=== PATIENT | female | born 1955 | race Caucasian/White ===

== ENCOUNTER 2023-08-11 06:46 | Inpatient (IN) | payer OTHER, MEDICARE ==
[~2023-08-11] VITALS: Ht 170.2 cm; Wt 81.6 kg
[2023-08-11] MEDS ORDERED: SCOPOLAMINE HYDROBROMIDE 1 MG PATCH .72 H (TRANSDERM-SCOP) TD ONE ×2 (07:00→07:06)
[2023-08-11] MEDS ORDERED: ACETAMINOPHEN 500 MG TABLET PO ONE (07:00)
[2023-08-11] MEDS ORDERED: oxyCODONE HCL 10 MG TAB.ER.12H PO ONE (07:00)
[2023-08-11] MEDS ORDERED: CELECOXIB 100 MG CAPSULE PO ONE (07:00)
[2023-08-11] MEDS ORDERED: CELECOXIB 100 MG CAPSULE ONE (07:05)
[2023-08-11] MEDS ORDERED: ACETAMINOPHEN 500 MG TABLET ONE (07:06)
[2023-08-11] MEDS ORDERED: GABAPENTIN 300 MG CAPSULE ONE (07:09)
[2023-08-11] MEDS ORDERED: GABAPENTIN 300 MG CAPSULE PO ONE (07:15)
[2023-08-11 07:24] LABS: HEMATOCRIT 43.7 % (36-48); HEMOGLOBIN 14.2 g/dL (12.0-16.0); MEAN CORPUSCULAR HEMOGLOBIN 30 pg (27-31); MEAN CORPUSCULAR HGB CONC 33 % (32-36); MEAN CORPUSCULAR VOLUME 92 fL (79.0-98.0); PLATELET COUNT (AUTO) 288 K/uL (130-430); RED BLOOD CELL COUNT(AUTO) 4.75 MIL/uL (4.2-6.2); RED CELL DISTRIBUTION WIDTH 13.9 % (9.0-15.0)
[2023-08-11] MEDS ORDERED: CEFAZOLIN SOD 2 GM in D5W 50 ML IV ONE (07:30)
[2023-08-11 07:31] LABS: WHITE BLOOD COUNT (AUTO) 32.5 K/uL (4.8-10.8)
[2023-08-11 07:41] LABS: CALCIUM 8.8 mg/dL (8.4-11.0); CREATININE 0.7 mg/dL (0.55-1.30); POTASSIUM 4.1 mmol/L (3.5-5.1)
[2023-08-11 08:09] LABS: ATYPICAL LYMPHOCYTES % 4 % (0-0); BASOPHILS % (MANUAL) 0 % (0-2); EOSINOPHILS % (MANUAL) 0 % (0-7); LYMPHOCYTES % (MANUAL) 82 % (20-46); MONOCYTES % (MANUAL) 1 % (0-11); PLATELET ESTIMATE ADEQUATE (ADEQUATE); SMUDGE CELLS FEW
[2023-08-11] MEDS ORDERED: VANCOMYCIN HCL 1000 MG/VIAL IV ONE (09:35)
[2023-08-11] MEDS ORDERED: LR 1,000 ML IV.SOLN IV ONE (09:35)
[2023-08-11] MEDS ORDERED: PROPOFOL 200MG/ 20ML VIAL (DIPRIVAN) IV ONE (09:35)
[2023-08-11] MEDS ORDERED: BUPIVACAINE /DEX PF 0.75% SPINAL 2 ML AMP INJ ONE (09:35)
[2023-08-11] MEDS ORDERED: MIDAZOLAM HCL 2 MG/2 ML VIAL (VERSED) ONE (09:35)
[2023-08-11] MEDS ORDERED: PHENYLEPHRINE HCL 10 MG/ML VIAL (NEOSYNEPHRINE) ONE (09:35)
[2023-08-11] MEDS ORDERED: ePHEDrine sulfate 50 MG/ML VIAL ONE (09:35)
[2023-08-11] MEDS ORDERED: DEXAMETHASONE SOD PHOSPHATE 4 MG/ML VIAL ONE (09:35)
[2023-08-11] MEDS ORDERED: SEVOFLURANE 15 MIN GAS INH ONE (09:35)
[2023-08-11] MEDS ORDERED: fentaNYL CITRATE/PF 100 MCG/2 ML AMP ONE (09:35)
[2023-08-11] MEDS ORDERED: GLYCOPYRROLATE 0.2 MG/ML VIAL ONE (09:35)
[2023-08-11] MEDS ORDERED: TRANEXAMIC ACID 1,000 MG/10 ML VIAL ONE (09:35)
[2023-08-11] MEDS ORDERED: METOCLOPRAMIDE HCL 10 MG/2 ML VIAL ONE (09:35)
[2023-08-11] MEDS ORDERED: KETOROLAC TROMETHAMINE 30 MG VIAL ONE (09:35)
[2023-08-11] MEDS ORDERED: ONDANSETRON HCL 4 MG/2 ML VIAL ONE (09:35)
[2023-08-11] MEDS ORDERED: LORATADINE 10 MG TABLET PO PRN (11:00)
[2023-08-11] MEDS ORDERED: oxyCODONE HCL 5 MG TABLET PO PRN ×2 (11:00)
[2023-08-11] MEDS ORDERED: HYDROmorphone 1 MG/ML INJ. CARTRIDGE IVP PRN ×4 (11:00→11:30)
[2023-08-11] MEDS ORDERED: LR 1,000 ML IV SCH (11:30)
[2023-08-11] MEDS ORDERED: ONDANSETRON HCL 4 MG/2 ML VIAL IVP PRN ×2 (11:30→11:45)
[2023-08-11] MEDS ORDERED: KETOROLAC TROMETHAMINE 30 MG VIAL IVP PRN (11:30)
[2023-08-11] MEDS ORDERED: NALOXONE HCL 0.4 MG/ML AMP (NARCAN) IVP PRN ×5 (11:30→12:30)
[2023-08-11] MEDS ORDERED: MEPERIDINE HCL/PF 25 MG/ML DISP.SYRIN IVP PRN (11:30)
[2023-08-11] MEDS ORDERED: BISACODYL 10 MG/SUPPOSITORY RC PRN (12:30)
[2023-08-11] MEDS ORDERED: DIPHENHYDRAMINE HCL 25 MG CAPSULE PO PRN (12:30)
[2023-08-11] MEDS ORDERED: METOCLOPRAMIDE HCL 10 MG/2 ML VIAL IVP PRN (12:30)
[2023-08-11] MEDS ORDERED: LACTULOSE 20 GM/30 ML UDC PO PRN (12:30)
[2023-08-11 12:59] LABS: BASOPHILS # (AUTO) 0.1 K/uL (0.0-0.2); BASOPHILS % (AUTO) 0.3 % (0.0-2.0); EOSINOPHILS # (AUTO) 0.1 K/uL (0.0-0.4); EOSINOPHILS % (AUTO) 0.3 % (0.0-4.0); HEMATOCRIT 38.4 % (36-48); HEMOGLOBIN 12.4 g/dL (12.0-16.0); LYMPHOCYTES % (AUTO) 70.5 % (20.5-51.5); MEAN CORPUSCULAR HEMOGLOBIN 30 pg (27-31); MEAN CORPUSCULAR HGB CONC 32 % (32-36); MEAN CORPUSCULAR VOLUME 92 fL (79.0-98.0); MONOCYTES # (AUTO) 0.4 K/uL (0.0-1.0); MONOCYTES % (AUTO) 1.4 % (1.7-9.3); NEUTROPHILS # (AUTO) 8.6 K/uL (1.8-7.7); PLATELET COUNT (AUTO) 255 K/uL (130-430); RED BLOOD CELL COUNT(AUTO) 4.16 MIL/uL (4.2-6.2); RED CELL DISTRIBUTION WIDTH 13.6 % (9.0-15.0)
[2023-08-11 13:09] LABS: WHITE BLOOD COUNT (AUTO) 31.3 K/uL (4.8-10.8)
[2023-08-11 13:12] LABS: NEUTROPHILS % (AUTO) 27.5 % (40.0-70.0)
[2023-08-11] MEDS: ceFAZolin SODIUM 2 GM in D5W 50 ML IV SCH ×3 (13:25→21:58)
[2023-08-11 16:00] VITALS: BP_SYST 118; PULSE 86; RESP 16; TEMP 97.2; O2SAT 97
[2023-08-11 17:45] VITALS: O2SAT 95
[2023-08-11 19:00] VITALS: O2SAT 97
[2023-08-11] MEDS: ACETAMINOPHEN 500 MG TABLET PO SCH ×2 (20:31→21:58)
[2023-08-11] MEDS: KETOROLAC TROMETHAMINE 10 MG TABLET (TORADOL) PO SCH ×2 (20:31→22:02)
[2023-08-11 20:42] VITALS: BP_SYST 113; PULSE 78; RESP 16; TEMP 97; O2SAT 93
[2023-08-11] MEDS: SENNOSIDES/DOCUSATE SODIUM 1 TAB TABLET(SENOKOT-S) PO SCH (21:57)
[2023-08-12 00:42] VITALS: BP_SYST 108; PULSE 70; RESP 18; TEMP 98; O2SAT 95
[2023-08-12] MEDS: traMADol HCL HCL 50 MG TABLET (ULTRAM) PO PRN ×2 (03:18→20:43)
[2023-08-12] MEDS: ceFAZolin SODIUM 2 GM in D5W 50 ML IV SCH (05:47)
[2023-08-12] MEDS: ACETAMINOPHEN 500 MG TABLET PO SCH ×3 (06:08→22:22)
[2023-08-12] MEDS: KETOROLAC TROMETHAMINE 10 MG TABLET (TORADOL) PO SCH (06:09)
[2023-08-12 07:34] LABS: CALCIUM 8.1 mg/dL (8.4-11.0); CREATININE 0.88 mg/dL (0.55-1.30); POTASSIUM 4.4 mmol/L (3.5-5.1)
[2023-08-12 08:36] VITALS: BP_SYST 124; PULSE 83; RESP 20; TEMP 98.2; O2SAT 99
[2023-08-12] MEDS: SENNOSIDES/DOCUSATE SODIUM 1 TAB TABLET(SENOKOT-S) PO SCH ×2 (09:17→20:40)
[2023-08-12] MEDS: ASPIRIN 81 MG TAB.CHEW PO SCH ×2 (09:17→20:40)
[2023-08-12] MEDS: DECADRON 4 MG TABLET PO SCH (09:17)
[2023-08-12] MEDS: CELECOXIB 200 MG CAPSULE PO SCH ×2 (10:30→23:23)
[2023-08-12 12:00] VITALS: BP_SYST 118; PULSE 75; RESP 19; TEMP 98.1; O2SAT 97
[2023-08-12 16:42] VITALS: BP_SYST 121; PULSE 79; RESP 17; TEMP 98.3; O2SAT 99
[2023-08-12 19:00] VITALS: BP_SYST 144; PULSE 66; RESP 16; TEMP 98.4; O2SAT 96
[2023-08-12 20:00] VITALS: BP_SYST 144; PULSE 66; RESP 16; TEMP 98.4; O2SAT 96
[2023-08-13 00:31] VITALS: BP_SYST 129; PULSE 68; RESP 16; TEMP 98.2; O2SAT 95
[2023-08-13] MEDS: ACETAMINOPHEN 500 MG TABLET PO SCH (05:51)
[2023-08-13 08:51] VITALS: BP_SYST 136; PULSE 63; RESP 18; TEMP 97.7; O2SAT 99
[2023-08-13] MEDS: ASPIRIN 81 MG TAB.CHEW PO SCH (09:16)
[2023-08-13] MEDS: DECADRON 4 MG TABLET PO SCH (09:16)
[2023-08-13] MEDS: SENNOSIDES/DOCUSATE SODIUM 1 TAB TABLET(SENOKOT-S) PO SCH (09:16)
[2023-08-13] MEDS: CELECOXIB 200 MG CAPSULE PO SCH (11:37)
[2023-08-13 12:26] VITALS: BP_SYST 130; PULSE 65; RESP 17; TEMP 98; O2SAT 98
[2023-08-13 13:33] VITALS: BP_SYST 144; PULSE 72; RESP 18; TEMP 97.9; O2SAT 98
== END 2023-08-13 14:55 | disposition home or self-care (01) | DRG 470 ==
LOC: SMU 06:46
PROVIDERS: ADMIT Student in an Organized Health Care Education/Training Program; ATTEND Student in an Organized Health Care Education/Training Program
PROC: 0SR90JA Replacement of Right Hip Joint with Synthetic Substitute, Uncemented, Open Approach (ICD-10-PCS; principal; 2023-08-11 09:35)
DX: M16.11 Unilateral primary osteoarthritis, right hip (principal)
CPT/HCPCS: 36415; 72170-TC; 76001; 80048; 85007; 85025; 85027; 88304; 88311; 96379; 97110-GP; 97116-GP; 97530-GP; J0690; J1100; J1885; J2370; J2405; J2704; J2765; J3010; J3370; J3465; J3490; J7060; J7120; J8540